=== PATIENT | female | born 1950 | race Asian ===

== ENCOUNTER 2017-07-23 14:00 | Outpatient (RCR) | payer MEDICARE | END 2017-07-26 | disposition home or self-care (01) | LOC: PTY 14:00 | DX: M21.611 Bunion of right foot (principal) | CPT/HCPCS: 97110; 97140; 97162; G0283; G8978; G8979 ==

== ENCOUNTER 2017-08-23 14:00 | Outpatient (RCR) | payer MEDICARE | END 2017-08-25 | disposition home or self-care (01) | LOC: PTY 14:00 | DX: Z98.890 Other specified postprocedural states (principal); M67.01 Short Achilles tendon (acquired), right ankle | CPT/HCPCS: 97035; 97110; 97140; G0283; G8978; G8979 ==

== ENCOUNTER 2017-09-21 13:00 | Outpatient (RCR) | payer MEDICARE | END 2017-09-25 | disposition home or self-care (01) | LOC: PTY 13:00 | DX: M21.611 Bunion of right foot (principal) | CPT/HCPCS: 97110; 97140; G0283 ==